=== PATIENT | female | born 1950 | race Caucasian/White ===

== ENCOUNTER 2016-11-24 07:35 | Outpatient (CLI) | payer BC | END 2016-11-24 20:14 | disposition home or self-care (01) | LOC: SMA 07:35 | PROVIDERS: ATTEND Family Medicine | DX: Z12.31 Encounter for screening mammogram for malignant neoplasm of breast (principal) | CPT/HCPCS: 77067; G0202 ==

== ENCOUNTER 2018-04-01 07:55 | Outpatient (CLI) | payer OTHER, MEDICARE | END 2018-04-01 09:26 | disposition home or self-care (01) | LOC: SMA 07:55 | PROVIDERS: ATTEND Family Medicine | DX: Z12.31 Encounter for screening mammogram for malignant neoplasm of breast (principal) | CPT/HCPCS: 77067 ==

== ENCOUNTER 2019-04-03 08:20 | Outpatient (CLI) | payer OTHER, MEDICARE | END 2019-04-03 20:45 | disposition home or self-care (01) | LOC: SMA 08:20 | PROVIDERS: ATTEND Family Medicine | DX: Z12.31 Encounter for screening mammogram for malignant neoplasm of breast (principal) | CPT/HCPCS: 77067 ==

== ENCOUNTER 2021-05-11 08:14 | Outpatient (CLI) | payer OTHER, MEDICARE | END 2021-05-11 19:37 | disposition home or self-care (01) | LOC: SMA 08:14 | PROVIDERS: ATTEND Obstetrics & Gynecology Gynecology | DX: Z12.31 Encounter for screening mammogram for malignant neoplasm of breast (principal); N64.89 Other specified disorders of breast | CPT/HCPCS: 77067 ==